=== PATIENT | female | born 1965 | race African-American/Black ===

== ENCOUNTER → 2018-04-30 | Outpatient (CLI) | payer BC | LOC: MC.RAD 10:00 | DX: Z12.31 Encounter for screening mammogram for malignant neoplasm of breast (principal) ==

== ENCOUNTER 2018-07-01 15:44 | Emergency (ER) | payer BC ==
[~2018-07-01] VITALS: Ht 170.2 cm; Wt 127.3 kg
[2018-07-01 15:49] VITALS: TEMP 96.8
[2018-07-01 16:31] LABS: COLLECTION METHOD CLEAN CATCH
[2018-07-01 16:37] LABS: MUCOUS Present /lpf; PH 5 (5-8); SQUAMOUS EPITHELIAL None Seen /hpf; URINE APPEARANCE Clear; URINE BACTERIA None Seen /hpf; URINE BILIRUBIN Negative (NEGATIVE); URINE BLOOD 1+ (NEGATIVE); URINE COLOR Yellow; URINE GLUCOSE Negative (NEGATIVE); URINE KETONE Negative (NEGATIVE); URINE LEUKOCYTE ESTERASE Negative (NEGATIVE); URINE NITRATE Negative (NEGATIVE); URINE PROTEIN(semi-quant) Negative (NEGATIVE); URINE RBC 0-2 /hpf; URINE UROBILINOGEN Negative (NEGATIVE)
[2018-07-01 16:56] LABS: BASO # 0.1 (0.0-0.2); BASO % 0.8 % (0.0-2.0); EOS # 0.2 (0.0-0.7); EOS % 1.6 % (0-4.0); GRAN # 5.9 (1.4-6.5); GRAN % 64.8 % (42.2-75.2); HEMATOCRIT 40.1 % (37.0-47.0); HEMOGLOBIN 12.8 g/dl (12.5-16.0); LYMPH # 2.5 (1.2-3.4); LYMPH % 26.9 % (20.0-51.0); MEAN CELL VOLUME 86 fl (80.0-100.0); MEAN CORPUSCULAR HEMOGLOBIN 28 pg (27.0-31.0); MEAN CORPUSCULAR HGB CONC 32 g/dl (33.0-37.0); MEAN PLATELET VOLUME 8.6 fl (7.4-10.4); MONO # 0.5 (0.1-0.6); MONO % 5.7 % (1.7-9.3); PLATELET COUNT 257 K/mm3 (130-400); RED BLOOD COUNT 4.65 M/mm3 (4.10-5.30); REDCELL DISTRIBUTION WIDTH-CV 12.6 % (11.5-14.5)
[2018-07-01] MEDS ORDERED: ESTRADERM0.05 MG/24 TD (16:58)
[2018-07-01] MEDS ORDERED: [UNRECOGNIZED DRUG - OTHER] PO (16:58)
[2018-07-01] MEDS ORDERED: BENTYL 10MG10 MG/CAP PO (16:58)
[2018-07-01] MEDS ORDERED: KLONOPIN WAFE0.25 MG PO (16:58)
[2018-07-01] MEDS ORDERED: CELEXA10 MG PO (16:59)
[2018-07-01 17:03] LABS: ALANINE AMINOTRANSFERASE 16 U/L (9-52); ALBUMIN 4.2 gm/dL (3.5-5.0); ALKALINE PHOSPHATASE 128 U/L (50-136); ANION GAP 6 mmol/L (7-16); AST,SGOT 32 U/L (15-37); BILIRUBIN,TOTAL 0.5 mg/dL (0.0-1.0); BLOOD UREA NITROGEN 12 mg/dL (7-17); CALCIUM 9.3 mg/dL (8.4-10.2); CARBON DIOXIDE 29 mmol/L (22-30); CHLORIDE 105 mmol/L (98-107); CREATININE, serum 0.83 (0.52-1.25); GLUCOSE 95 mg/dL (74-106); POTASSIUM 3.6 mmol/L (3.4-5.0); SODIUM 140 mmol/L (137-145); TOTAL PROTEIN 9.1 gm/dL (6.4-8.2)
[2018-07-01 17:22] LABS: TROPONIN-I < 0.012 ng/mL (0.000-0.035)
[2018-07-01] MEDS ORDERED: ZOFRAN 4MG T4 MG/TAB PO (18:15)
[2018-07-01] MEDS ORDERED: NORCO 325 MG-51 TAB PO (18:15)
[2018-07-01 18:27] VITALS: BP 126/69; PULSE 66
== END 2018-07-01 18:27 | disposition home or self-care (01) ==
LOC: COL.ER 15:44
PROVIDERS: Emergency Medicine
DX: R10.9 Unspecified abdominal pain (principal); K58.9 Irritable bowel syndrome, unspecified; Z90.710 Acquired absence of both cervix and uterus; Z98.890 Other specified postprocedural states
CPT/HCPCS: J1885; J2270; J2405; J7030; Q9967

== ENCOUNTER → 2020-04-17 | Outpatient (CLI) | payer BC ==
[~2020-04-17] MED LIST: BENTYL 10MG10 MG/CAP PO; CELEXA10 MG PO; ESTRADERM0.05 MG/24 TD; KLONOPIN WAFE0.25 MG PO; NORCO 325 MG-51 TAB PO; ZOFRAN 4MG T4 MG/TAB PO; [UNRECOGNIZED DRUG - OTHER] PO
== END ==
LOC: MC.RAD 04-07 07:45
DX: Z12.31 Encounter for screening mammogram for malignant neoplasm of breast (principal); R92.8 Other abnormal and inconclusive findings on diagnostic imaging of breast

== ENCOUNTER → 2020-04-27 | Outpatient (CLI) | payer BC | LOC: MC.RAD 14:00 | DX: N64.59 Other signs and symptoms in breast (principal) ==

== ENCOUNTER 2022-06-27 09:52 | Emergency (ER) | payer OTHER, BC ==
[~2022-06-27] VITALS: Ht 170.2 cm; Wt 127.3 kg
[2022-06-27] MEDS ORDERED: ZOLOFT 100MG100 MG PO (09:55)
[2022-06-27 09:58] VITALS: TEMP 98.4
[2022-06-27] MEDS ORDERED: FLEXERIL 1010 MG/TAB PO (11:33)
[2022-06-27 11:35] VITALS: BP 137/94; PULSE 64
== END 2022-06-27 11:35 | disposition home or self-care (01) ==
LOC: COL.ER 09:52
DX: S13.4XXA Sprain of ligaments of cervical spine, initial encounter (principal); V85.5XXA Driver of special construction vehicle injured in nontraffic accident, initial encounter; Y92.410 Unspecified street and highway as the place of occurrence of the external cause
CPT/HCPCS: J1885